=== PATIENT | male | born 1955 | race Two or more races ===

== ENCOUNTER → 2017-05-24 | Outpatient (REF) | payer BC ==
[2017-05-27 00:06] LABS: Lyme Disease IgG/IgM Antibodie <0.91 ISR (0.00-0.90); Lyme Disease IgM Ab Quantitati <0.80 index (0.00-0.79)
== END ==
LOC: M SFHCCAPE 11:13
PROVIDERS: ATTEND Physician Assistant
DX: M25.50 Pain in unspecified joint (principal)